=== PATIENT | female | born 1990 | race African-American/Black ===

== ENCOUNTER 2020-03-18 18:50 | Emergency (ER) | payer MEDICAID ==
[~2020-03-18] VITALS: Ht 172.7 cm; Wt 50.0 kg
[2020-03-18 18:55] VITALS: BP 134/88
[2020-03-18] MEDS ORDERED: ACETAMINOPHEN 325MG TABLET PO ONE (20:15)
== END 2020-03-18 20:29 | disposition left against medical advice (07) ==
LOC: ER 18:50
DX: S09.8XXA Other specified injuries of head, initial encounter (principal); Y04.2XXA Assault by strike against or bumped into by another person, initial encounter; Y07.03 Male partner, perpetrator of maltreatment and neglect; Y93.89 Activity, other specified; Y92.89 Other specified places as the place of occurrence of the external cause
CPT/HCPCS: 99281